=== PATIENT | female | born 1955 | race American Indian/Alaskan Native ===

== ENCOUNTER 2016-08-03 09:22 | Outpatient (CLI) | payer OTHER ==
--- NOTE | 2016-08-03 13:06 | Mammography Report ---
BILATERAL MAMMOGRAM: No previous studies available for comparison. CAD study utilized. FINDINGS: Predominance of adipose tissue bilaterally. Circumscribed density measuring 4 mm in diameter at the left breast and upper outer right breast. Benign-appearing calcifications. Benign axillary nodes. IMPRESSION: Circumscribed density right and left breasts, as described. Comparison with previous studies is recommended. If previous studies are not available, spot mag and if necessary sonographic examination advised. BI-RADS CATEGORY: 0 = Needs additional imaging evaluation ACR BI-RADS MAMMOGRAPHIC CODES: 0 = Needs additional imaging evaluation; 1 = Negative; 2 = Benign; 3 = Probably benign; 4 = Suspicious; 5 = Malignant; 6 = Known biopsy-proven malignancy COMMENT: 1. Dense breast tissue, i.e., adenosis, fibrocystic changes, etc., may obscure an underlying neoplasm. 2. Approximately 10% of cancers are not detected with mammography. 3. A negative mammography report should not delay biopsy if a clinically suspicious mass is present. COMMENT: Patient follow-up letters are generated in [employer] [place].
== END 2016-08-03 09:23 | disposition home or self-care (01) ==
LOC: MAMMO 09:22
PROVIDERS: ATTEND Family Medicine
DX: Z12.31 Encounter for screening mammogram for malignant neoplasm of breast (principal)
CPT/HCPCS: 77067; G0202